=== PATIENT | female | born 1985 | race Caucasian/White ===

== ENCOUNTER → 2021-01-07 08:15 | Outpatient (CLI) | payer OTHER, SELFPAY ==
--- NOTE | ~2021-01-07 | MMUS_ITS ---
EXAMINATION: MM diagnostic john BI w abram, US breast BI complete HISTORY: Bilateral breast lumps TECHNIQUE: Full field ML, MLO and craniocaudal 3-D tomosynthesis images of both breasts and spot Abram synthesis images of the right breast were performed and synthetic 2-D images were generated. CAD anal ysis was submitted and interpreted. High resolution complete bilateral breast ultrasound was performe d. COMPARISON: None BREAST PARENCHYMAL COMPOSITION: The breasts are extremely dense, which lowers the sensitivity of mamm ography. FINDINGS: MAMMOGRAPHIC FINDINGS: No detected mass. No architectural distortion. A few benign calcifications are noted. No malignant ca lcification is evident. No skin thickening or retraction. ULTRASOUND: Right breast: No suspicious solid lesion or shadowing. 10:00 4 cm from nipple: 2.6 x 7.8 x 8.9 mm simple cyst 12:00 3 cm from nipple: 2.2 x 6 x 5 mm simple cyst Left breast: No suspicious solid lesion or shadowing, cyst or other significant finding IMPRESSION: 1. No mammographic evidence of malignancy 2. Routine mammographic screening is recommended, with supplemental ultrasound as appropriate given t he extremely dense fibroglandular stroma BI-RADS Category 2: Benign finding(s). Reviewed, dictated and finalized at location A. IMPRESSION: 1. No mammographic evidence of malignancy 2. Routine mammographic screening is recommended, with supplemental ultrasound as appropriate given the extremely dense fibroglandular stroma BI-RADS Category 2: Benign finding(s).
== END ==
PROVIDERS: PCP Family Medicine; Visit Provider Family Medicine
DX: N60.01 Solitary cyst of right breast (principal)
CPT/HCPCS: 76641; 77062; 77066; G0279

== ENCOUNTER → 2022-06-22 07:50 | Outpatient (CLI) | payer OTHER, SELFPAY ==
--- NOTE | ~2022-06-22 | US_ITS ---
EXAMINATION: US abdomen limited DATE: 06/22/2022 08:29 INDICATION: Right upper quadrant pain TECHNIQUE: Multiple grayscale and Doppler ultrasound images of the abdomen were obtained. COMPARISON: None available FINDINGS: The head and body of the pancreas are normal. The pancreatic tail is obscured by bowel gas. The liver is normal with normal echogenicity and echotexture. No surface nodularity. Normal hepatope anderson flow in the main portal vein. The gallbladder is normal with no abnormal wall thickening, pericho lecystic fluid or stones. The normal common bile duct measures 3 mm. There was no sonographic Chan sign. IMPRESSION: 1. Normal sonographic study of the gallbladder. Reviewed, dictated and finalized at location A.
== END ==
PROVIDERS: PCP Family Medicine; Visit Provider Family Medicine
DX: R10.11 Right upper quadrant pain (principal)
CPT/HCPCS: 76705

== ENCOUNTER 2022-08-24 16:14 | Outpatient (CLI) | payer OTHER, SELFPAY | END 2022-08-24 16:15 | disposition home or self-care (01) | LOC: ANHLAB 16:18 | PROVIDERS: PCP Family Medicine; Visit Provider Obstetrics & Gynecology | DX: E34.9 Endocrine disorder, unspecified (principal) | CPT/HCPCS: 36415; 84702 ==

== ENCOUNTER 2022-08-25 15:14 | Outpatient (CLI) | payer OTHER, SELFPAY ==
--- NOTE | ~2022-08-25 | US_ITS ---
EXAMINATION: US OB <=14 wk fetus w TV DATE: 08/25/2022 15:59 INDICATION: Abnormal hCG level during first trimester TECHNIQUE: Real-time pelvic ultrasound utilizing both a transvaginal and transabdominal probe was pe rformed. The interpreting radiologist was not present for the study. COMPARISON: None. FINDINGS: The uterus measures 9.3 x 5.7 x 6.7 cm. There is an intrauterine gestational sac. A yolk sac is iden tified but no definitive pole. The mean sac diameter measures 6 mm, which correlates with an es timated gestational age of 5 weeks and 2 days. The right ovary measures 2.4 x 1.0 x 2.2 cm. The left ovary measures 2.8 x 2.2 x 2.1 cm. Duraflow amanda ntified in both ovaries on color Doppler. There is no free fluid in the pelvis. IMPRESSION: 1. Intrauterine gestational sac containing a yolk sac but no discernible pole likely due to ear ly stage of . 2. Gestational age by ultrasound based upon mean sac diameter of 5 weeks 2 day(s) +/- 3 day(s) with ultrasound estimated date of delivery (AMXIMUS) of 04/25/2023. Reviewed, dictated and finalized at location A. 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 Intrauterine gestational sac containing a yolk sac but no discernible pole likely due to early stage of . 2. Gestational age by ultrasound based upon mean sac diameter of 5 weeks 2 day (s) +/- 3 day(s) with ultrasound estimated date of delivery (MAXIMUS) of 04/25/2023.
== END 2022-08-25 15:15 | disposition home or self-care (01) ==
LOC: ANHIMG 15:20
PROVIDERS: PCP Family Medicine; Visit Provider Obstetrics & Gynecology
DX: O26.899 Other specified pregnancy related conditions, unspecified trimester (principal); R10.31 Right lower quadrant pain
CPT/HCPCS: 76801; 76817

== ENCOUNTER 2022-09-09 09:45 | Outpatient (CLI) | payer OTHER, SELFPAY ==
--- NOTE | ~2022-09-09 | US_ITS ---
Pelvic ultrasound. Clinical History: First trimester , endocrine disorder Technique: Realtime transabdominal and transvaginal scanning of the pelvis was performed. Color flow Doppler and Doppler spectral analysis were performed. Findings: The uterus is anteverted, and contains an intrauterine gestation. [place]-rump length of 6 mm corresponds to an estimated gestational age of 6 weeks 3 days. No cardiac activity identified. The right ovary measures 1.5 x 3.0 x 1.9 cm. No significant right ovarian or adnexal mass is seen. The left ovary measures 2.7 x 1.5 x 2.7 cm. No significant left ovarian or adnexal mass is seen. There is no evidence of free fluid in the cul de sac. Impression: 6 weeks 3 day old intrauterine gestation without cardiac activity. This is suspicious for demis e/missed . Consider serial beta hCG follow-up, and repeat ultrasound as warranted. Reviewed, dictated and finalized at [facility]. 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 This is susp icious for demise/missed . Consider serial beta hCG follow-up, an d repeat ultrasound as warranted.
== END 2022-09-09 09:46 | disposition home or self-care (01) ==
PROVIDERS: PCP Family Medicine; Visit Provider Obstetrics & Gynecology
DX: O99.891 Other specified diseases and conditions complicating pregnancy (principal); E34.9 Endocrine disorder, unspecified; O28.4 Abnormal radiological finding on antenatal screening of mother; Z3A.00 Weeks of gestation of pregnancy not specified
CPT/HCPCS: 36415; 76801; 76817; 84702

== ENCOUNTER 2022-09-13 14:30 | Outpatient (CLI) | payer OTHER, SELFPAY | END 2022-09-13 14:31 | disposition home or self-care (01) | LOC: ANHLAB 14:32 | PROVIDERS: PCP Family Medicine; Visit Provider Obstetrics & Gynecology | DX: O36.80X0 Pregnancy with inconclusive fetal viability, not applicable or unspecified (principal) | CPT/HCPCS: 36415; 84702 ==

== ENCOUNTER 2022-09-16 15:06 | Outpatient (CLI) | payer OTHER, SELFPAY ==
--- NOTE | ~2022-09-16 | US_ITS ---
EXAMINATION: US OB <=14 wk fetus w TV DATE: 09/16/2022 15:55 INDICATION: with inconclusive viability TECHNIQUE: Real-time transabdominal and transvaginal obstetric ultrasound. FINDINGS: Comparison to 09/09/2022 The uterus measures 8.8 x 5.7 x 6.7 cm. There is an intrauterine gestational sac containing a p ole with crown-rump length of 0.37 cm corresponding to 6 week 0 day gestation. No heart motions are detected. The crown-rump length measured 0.61 on prior ultrasound dated 09/09/2022 at which time there was no heart motions detected as well. The ovaries are within normal limits. There is fr ee fluid in the pelvis. IMPRESSION: 1. Intrauterine gestational sac containing a pole corresponding to 6 week 0 day gestation. No f etal heart motions. Findings most likely represent demise when compared to prior examination. R ecommend follow-up with serial quantitative beta-hCG levels and ultrasound as clinically indicated. Reviewed, dictated and finalized at location A. 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 Intrauterine gestational sac containing a pole corresponding to 6 week 0 day gestation. No heart motions. Findings most likely represent demise when compared to prior examination. Recommend follow-up with serial krupa titative beta-hCG levels and ultrasound as clinically indicated.
== END 2022-09-16 15:07 | disposition home or self-care (01) ==
PROVIDERS: PCP Family Medicine; Visit Provider Obstetrics & Gynecology
DX: O36.80X0 Pregnancy with inconclusive fetal viability, not applicable or unspecified (principal); Z3A.01 Less than 8 weeks gestation of pregnancy
CPT/HCPCS: 76801; 76817

== ENCOUNTER 2022-09-19 16:47 | Outpatient (CLI) | payer OTHER, SELFPAY | END 2022-09-19 16:48 | disposition home or self-care (01) | LOC: ANHLAB 16:49 | PROVIDERS: PCP Family Medicine; Visit Provider Obstetrics & Gynecology | DX: O03.9 Complete or unspecified spontaneous abortion without complication (principal); Z3A.00 Weeks of gestation of pregnancy not specified | CPT/HCPCS: 36415; 84702; 86850; 86900; 86901 ==

== ENCOUNTER 2022-11-22 11:42 | Outpatient (CLI) | payer OTHER, SELFPAY ==
--- NOTE | ~2022-11-22 | XR_ITS ---
Left wrist Technique: PA and lateral views were obtained. Clinical History: Pain Findings: No acute fracture or dislocation is seen. Osseous alignment is anatomic. Joint spaces are p reserved. Soft tissues are unremarkable. Impression: Unremarkable left wrist radiographs. Reviewed, dictated and finalized at location M. Impression: Unremarkable left wrist radiographs.
--- NOTE | ~2022-11-22 | XR_ITS ---
Left Hand Technique: PA, oblique, and lateral views were obtained. Clinical History: Pain Findings: No acute fracture or dislocation is seen. Osseous alignment is anatomic. Joint spaces are p reserved. Soft tissues are unremarkable. Impression: Unremarkable left hand. Reviewed, dictated and finalized at location M. Impression: Unremarkable left hand.
== END 2022-11-22 11:43 | disposition home or self-care (01) ==
PROVIDERS: PCP Family Medicine; Visit Provider Family Medicine
DX: M25.542 Pain in joints of left hand (principal); M25.539 Pain in unspecified wrist
CPT/HCPCS: 73100; 73130

== ENCOUNTER 2023-03-01 01:41 | Day surgery (SDC) | payer OTHER, SELFPAY ==
[2023-02-24 15:20] VITALS: BMI 20.7
--- NOTE | 2023-02-24 15:26 | PC.NURSE ---
Report to the Outpatient Waiting Room, entrance under the green pavilion located off [facility], at time _0800_ on date _03/01/23_. Planned Procedure Time: _1000__. Time changes happen often and if your time is changed the preop area will call you the afternoon before. - You and your visitor will be asked to self-screen and do not enter if you have any COVID symptoms. - A mask is optional within the hospital at this time. Patients may have clear liquids (water, carbonated beverages, clear teas, apple juice) until 3 hours prior to surgery with a maximum of 20 ounces. - No food from midnight until time of surgery - Infants may have breast milk until 4 hours before surgery, formula 6 hours prior to surgery. - Children will be allowed to drink immediately following surgery. If applicable, please bring a bottle or sippy cup to assist with drinking. Juice, water, soda, and popsicles are readily available. For infants on formula, please bring formula the day of surgery. Pacifiers are allowed. Take the following medications with a SIP of water the morning of surgery: ALBUTEROL IF NEEDED DO NOT STOP ANY OF YOUR OTHER PRESCRIPTION MEDICATIONS PRIOR TO SURGERY ?EXCEPT THE FOLLOWING Medications to discontinue per physician MULTIVITAMIN Date to take last dose 02/26/23 Please no make-up, nail belarusian, hairspray, perfume, deodorant, or body powder the day of surgery. No jewelry (including any body piercings) or valuables the day of surgery, leave them at home. Please take a shower or bath the night before, or the morning of, surgery with an antibacterial soap. Wear comfortable, loose fitting clothing. Children are encouraged to wear pajamas. - Jewelry must be removed prior to entering the operating room. Rings and piercings that are not removed may be cut off. - The hospital will not accept responsibility for valuables. - Please leave all valuables, including medications, at home the day of surgery. If you are going home after surgery, a licensed over the road driver must drive you home. - NO public transportation without another adult if you receive anesthesia. - We recommend that an adult stay with you for 24 hours following discharge. - We also recommend that you do not drive, make important decision, drink alcoholic beverages, or take any drugs that were not prescribed by your health care provider for at least 24 hours after your discharge time. For Pediatric surgeries, we recommend two adults accompany the child home. Follow any additional instructions given to you from your surgeon. If you or anyone in your household have experienced Covid symptoms in the past week, please notify your surgeon or the nurse liaison at the phone number below for possible testing. Telephone instructions given to _PATIENT___and asked if any additional questions and then verbalized understanding. Patient advised to call surgeon office or pre surgery nurse liaison [phone] if any additional questions.
[2023-03-01] VITALS (12 sets, daily range): BP systolic 94–128; BP diastolic 58–79; PULSE 47–75; RESP 10–17; TEMP 36.4–36.9; O2SAT 100
--- NOTE | 2023-03-01 07:12 | PM.IMHP ---
H&P: HPI History of Present Illness Date/Time: 03/01/23 07:12 Chief Complaint: Satisfied parity request sterilization Narrative: She is here today for elective laparoscopic bilateral salpingectomy for sterilization. She has satisfied parity. Spouse recently had vasectomy and she wants the sterilization. Declines other options. Review of Systems Review of Systems: All systems reviewed & are unremarkable except as noted in HPI and below Cardiovascular: Cardiovascular: Reports no additional cardiovascular complaints, Denies chest pain and Denies dyspnea Respiratory: Respiratory: Reports no additional respiratory complaints and Denies dyspnea Gastrointestinal: Gastrointestinal: Reports abdominal pain, Denies change in bowel habits, Denies diarrhea, Denies nausea and Denies vomiting Genitourinary: Genitourinary: Reports pelvic pain Musculoskeletal: Musculoskeletal: Reports back pain Integumentary/Breasts: Skin/Breast: Reports system reviewed and no additional complaints, except as docu Neurologic: Reports system reviewed and no additional complaints, except as documented PMFSH Past Medical History Medical History Asthma ALLYSON (generalized anxiety disorder) Migraine Vaginal delivery Surgical History Surgical History History of repair of ACL Family History Family History Mother Depression Hypertension Grandparent Alzheimer's dementia Sibling Patient's brother is in good health Father Family history of heart disease in male family member before age 55 Grandparent Diabetes mellitus Family history of lymphoma Other Acute myocardial infarction Cerebrovascular accident Social History Social History Social History: Smoking status: Never smoker Second hand tobacco smoke exposure: No Alcohol intake: current Drinks per week: 1 Alcohol use details: Socially Substance use: never Substance use type: does not use Lack of Transportation: No Lack of Food: Never True Current Housing: I Have Housing Concerned About Future Housing: No Difficulty Paying Gas/Electric Bills: No Difficulty Paying for Meds: No Currently Unemployed: No Education: Master's Degree or Higher Difficulty w/ Childcare or Family Care: No Living arrangements: with family Occupation/Education: occupation Gender identity (if verbalized by the patient): Female Sexual Orientation (if Verbalized by the Patient): Straight or Heterosexual Meds Home Medications and Allergies Home Medications Medication Instructions Recorded Confirmed Type multivitamin (Daily Multi-Vitamin 1 tablet PO DAILY 08/25/21 03/01/23 History tablet) albuterol sulfate 90 mcg/actuation 2 puff inhalation QID PRN SHORTNES 02/24/23 03/01/23 History aerosol inhaler OF BREATH Allergies Allergy/AdvReac Type Severity Reaction Status Date / Time pseudoephedrine Allergy Mild behavioral Verified 02/09/23 14:36 changes & abnormal dreams Exam Const: Orientation/consciousness: oriented to person and oriented to place HENMT: Head: normal to inspection Eyes: General: appearance normal, both eyes and all related structures Resp: Effort & Inspection: normal respiratory effort Auscultation: clear to auscultation bilaterally Cardio: Rate: regular rate Rhythm: regular rhythm GI: Inspection: normal to inspection GI Palp: No Rebound tenderness present Neuro: General: oriented to person and oriented to place Cognition (Neuro): normal cognition Extrem: General: normal to inspection Psych: Appearance: grossly normal and well kempt Assessment and Plan Assessment and plan (1) Encounter for sterilization: Code(s): Z30.2 - Encounter for sterilization
[2023-03-01] MEDS: LACTATED RINGERS 1,000 ML 30 ML IV CONT ×2 (08:55→11:36)
[2023-03-01] MEDS: ACETAMINOPHEN 500 MG TABLET 1000 MG PO (08:55)
[2023-03-01] MEDS: KETOROLAC 15 MG/ML VIAL (*BKC) IV PUSH (08:55)
--- NOTE | 2023-03-01 10:08 | WPDANESEPPF ---
Anes - Initial Pre Proc Eval Procedure: Operation Date: 03/01/23 10:00 Proposed Procedures p Laparoscopic Bilateral Salpingectomy - Davis Lawson MD Date/Time: 03/01/23 10:08 Surgeon: Davis Lawson MD Pre Op Diagnosis: Desires Sterilization Patient Data Age: 37 Gender: F Height: 1.7 m Weight: 59.7 kg Last Vital Signs Temp 36.4 C 03/01/23 08:34 Pulse 75 03/01/23 08:34 Resp 16 03/01/23 08:34 BP 124/77 03/01/23 08:34 Pulse Ox 100 03/01/23 08:34 O2 Del Method Room Air 03/01/23 08:34 Allergies Allergy/AdvReac Type Severity Reaction Status Date / Time pseudoephedrine Allergy Mild behavioral Verified 02/09/23 14:36 changes & abnormal dreams Home Medications Medication Instructions Recorded Confirmed Type multivitamin (Daily Multi-Vitamin 1 tablet PO DAILY 08/25/21 03/01/23 History tablet) albuterol sulfate 90 mcg/actuation 2 puff inhalation QID PRN SHORTNES 02/24/23 03/01/23 History aerosol inhaler OF BREATH Patient hx anesthesia problems: none Family hx anesthesia problems: none Results Review: All pre-operative results and documents have been reviewed as part of the pre-operative evaluation. [facility] Past Medical History Medical History Asthma ALLYSON (generalized anxiety disorder) Migraine Vaginal delivery Surgical History Surgical History History of repair of ACL Family History Family History Mother Depression Hypertension Grandparent Alzheimer's dementia Sibling Patient's brother is in good health Father Family history of heart disease in male family member before age 55 Grandparent Diabetes mellitus Family history of lymphoma Other Acute myocardial infarction Cerebrovascular accident Social History Social History Social History: Smoking status: Never smoker Second hand tobacco smoke exposure: No Alcohol intake: current Drinks per week: 1 Alcohol use details: Socially Substance use: never Substance use type: does not use Lack of Transportation: No Lack of Food: Never True Current Housing: I Have Housing Concerned About Future Housing: No Difficulty Paying Gas/Electric Bills: No Difficulty Paying for Meds: No Currently Unemployed: No Education: Master's Degree or Higher Difficulty w/ Childcare or Family Care: No Living arrangements: with family Occupation/Education: occupation Gender identity (if verbalized by the patient): Female Sexual Orientation (if Verbalized by the Patient): Straight or Heterosexual Anes - Eval Final PreProcedure Day of Procedure 03/01/23 10:08 Patient weight: normal Heart: regular rate and rhythm Lungs: clear to auscultation Airway: Mallampati scale class II Neurological: alert and oriented Last oral intake: >/= 8 hours ASA classification: II Emergent: no Anesthetic plan: proceed Anesthesia type and monitoring: general ETT and standard monitoring Results Review: All pre-operative results and documents have been reviewed as part of the pre-operative evaluation. Informed Consent: The patient's anesthetic plan and its attendant risks and benefits were discussed with the patient/family/POA. Questions were solicited and answers provided to the satisfaction of the patient/family/POA.
--- NOTE | 2023-03-01 10:42 | WPDHPUPDATE1 ---
History and Physical Update Update Date/Time: 03/01/23 10:42 History and Physical has been reviewed, including an updated exam of the patient. There are NO changes in the patient's condition. Risks, benefits, and alternatives have been discussed and questions answered. Patient agrees to proceed with procedure.
[2023-03-01] MEDS: BUPivacaine HCL 0.5% 10 ML AMP 20 ML INFILTRATE (11:13)
--- NOTE | 2023-03-01 12:36 | PM.OP ---
Procedure Note - Brief Procedure Note - Brief Date of procedure: 03/01/23 Desires Sterilization Post-op diagnosis: Same Procedure performed: Laparoscopic bilateral salpingectomy Surgeon: Davis Lawson MD Anesthesia: GETA Findings: Normal uterus, fallopian tubes, and ovaries bilateral Estimated blood loss (mL): 5 Drains: No Packing: No Pathology: Yes (right and left fallopian tube) Complications: No immediate complications Condition: Stable
--- NOTE | 2023-03-17 09:25 | P.OP_ITS ---
Procedure Note - Detailed Date of Procedure 03/17/23 Pre-op Diagnosis Desires Sterilization Post-op Diagnosis Same Procedure Performed Laparoscopic Bilateral salpingectomy Surgeon Davis Lawson MD Anesthesia General Indications Undesired fertility, desires permanent sterilization Findings Normal appearing uterus and fallopian tubes and ovaries bilaterally. Description of Procedure After informed consent was obtained patient was taken to the operating room and general endotracheal anesthesia was administered. She was placed in low lithotomy need prep prepped sterile fashion. Attention was turned to the vagina speculum inserted single-tooth tenaculum placed on anterior lip of the cervix. Ethridge uterine manipulator placed into the cervical canal. The speculum was removed. Attention was then turned to the abdomen. With sterile gloves a vertical incision was made at the umbilicus and a Veress needle was inserted into the abdomen confirmation into the abdomen obtained with free flow of fluid and normal peritoneal pressures. A pneumoperitoneum of 15 mm per mercury was obtained. The 5 mm port was inserted under laparoscopic visualization. Patient was placed in Trendelenburg position. Attention was turned to the left side of the abdomen and a 5 mm port was inserted under laparoscopic visualization. The pelvic organs were visualized. Using the LigaSure the right fallopian tube was excised to near the entrance to the uterus. This was removed through the port. Attention was then turned to the left fallopian tube which was grabbed at the distal end and cauterized from the mesial salpinx to within a cm of the entrance to the entrance to the uterus. The fallopian tube was removed through the 5 mm port. Hemostasis was noted at both sites. Patient was taken out of Trendelenburg position the pneumoperitoneum was released and the skin incisions were closed in a subcuticular fashion with 4 O Vicryl. Estimated Blood Loss 5 Drains No Packing No Pathology Yes (Segments of right and left fallopian tubes) Complications No immediate complications Condition Stable Disposition Same day
== END 2023-03-01 13:48 | disposition home or self-care (01) ==
PROVIDERS: PCP Family Medicine; Visit Provider Obstetrics & Gynecology
PROC: (CPT 49320; principal; 2023-03-01 10:00)
DX: Z30.2 Encounter for sterilization (principal); J45.909 Unspecified asthma, uncomplicated; Z79.51 Long term (current) use of inhaled steroids
CPT/HCPCS: 58661; 88302; A9270; J0330; J1100; J1885; J2250; J2405; J2704; J2710; J3010; J7030; J7120

== ENCOUNTER 2023-07-31 15:43 | Emergency (ER) | payer OTHER, SELFPAY ==
[2023-07-31 16:03] VITALS: BP 121/87; PULSE 89; RESP 18; TEMP 36.6; O2SAT 100
--- NOTE | 2023-07-31 16:03 | ED.URI ---
HPI - URI/Sore Throat General Chief Complaint: Upper Respiratory Infection Stated Complaint: cough Source: patient Mode of arrival: ambulatory Limitations: no limitations History of Present Illness HPI Narrative: 38-year-old female presented for complaint of cough for over 1 week. States cough is nonproductive, worse in the morning. Taking cough med for symptoms. Endorses hx sports induced asthma and used albuterol inhaler 2 days ago after completing a 5K run, reporting chest felt heavy. Denies cp, palpitations, sob, wheezing, n/v/d/f/c. Related Data Home Medications Medication Instructions Recorded Confirmed albuterol sulfate 90 mcg/actuation 1 inh inhalation QID PRN Shortness 07/31/23 07/31/23 aerosol inhaler Of Breath Allergies Allergy/AdvReac Type Severity Reaction Status Date / Time pseudoephedrine Allergy Mild behavioral Verified 03/28/23 15:37 changes & abnormal dreams Review of Systems Review of Systems: CONSTITUTIONAL: Denies body aches, fever, chills, or sweats. EYES: Denies visual changes, redness, or discharge. ENT: Denies rhinorrhea, congestion, sore throat, or otalgia. CARDIOVASCULAR: Denies chest pain, palpitations, or edema. RESPIRATORY: Reports cough, denies sob, wheezing. GASTROINTESTINAL: Denies abdominal pain, nausea, vomiting, or diarrhea. GENITOURINARY: Denies dysuria or hematuria. SKIN: Denies rash, itching, or wounds. MUSCULOSKELETAL: Denies back pain, joint pain, or myalgia. NEUROLOGIC: Denies headache, numbness, tingling, or weakness. All systems reviewed & are unremarkable except as noted in HPI and below PMFSH Past Medical History Medical History Asthma ALLYSON (generalized anxiety disorder) Migraine Vaginal delivery Surgical History Surgical History History of repair of ACL Hx of bilateral salpingectomy Family History Family History Mother Depression Hypertension Grandparent Alzheimer's dementia Sibling Patient's brother is in good health Father Family history of heart disease in male family member before age 55 Grandparent Diabetes mellitus Family history of lymphoma Other Acute myocardial infarction Cerebrovascular accident Social History Social History Social History: Smoking status: Never smoker Second hand tobacco smoke exposure: No Alcohol intake: current Drinks per week: 1 Alcohol use details: Socially Substance use: never Substance use type: does not use Lack of Transportation: No Lack of Food: Never True Current Housing: I Have Housing Concerned About Future Housing: No Difficulty Paying Gas/Electric Bills: No Difficulty Paying for Meds: No Currently Unemployed: No Education: Master's Degree or Higher Difficulty w/ Childcare or Family Care: No Living arrangements: with family Occupation/Education: occupation Gender identity (if verbalized by the patient): Female Sexual Orientation (if Verbalized by the Patient): Straight or Heterosexual Comments At time of signature, I have reviewed and agree with nursing past medical, surgical, social and family history unless otherwise noted. Please see nursing chart for further information. There is no relevant family history pertinent to the presenting complaint Exam Narrative: GENERAL: Well-appearing, in no acute distress. EYES: EOMI. No redness or drainage. Conjunctivae normal. ENT: Mucous membranes pink and moist. No rhinorrhea. TMs normal bilaterally. Throat normal. Uvula midline. NECK: Normal AROM. Supple. CHEST: No respiratory distress. Lungs clear to all del cid. 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 HEART: Regular rate and rhythm. No murmur appreciated. ABDOMEN: Soft, nontender, nondistended, normal active
[2023-07-31 16:04] VITALS: BP 121/87; PULSE 89; RESP 18; TEMP 36.6; O2SAT 100
== END 2023-07-31 16:19 | disposition home or self-care (01) ==
PROVIDERS: Emergency Provider Nurse Practitioner Family; PCP Family Medicine
DX: J40 Bronchitis, not specified as acute or chronic (principal)
CPT/HCPCS: 99213; G0463

== ENCOUNTER 2024-02-26 15:39 | Outpatient (CLI) | payer OTHER, SELFPAY ==
--- NOTE | ~2024-02-26 | MM_ITS ---
EXAMINATION: MM screening john BI w abram HISTORY: Screening TECHNIQUE: Craniocaudal and mediolateral oblique 3-D tomosynthesis images were obtained and synthetic 2-D images were generated. CAD analysis was submitted and interpreted. COMPARISON: 01/07/2021 BREAST PARENCHYMAL COMPOSITION: Dense: The breasts are extremely dense, which lowers the sensitivity of mammography. FINDINGS: There is no evidence of suspicious mass, calcification, or architectural distortion to sugg est malignancy in either breast. There has been no suspicious interval change. IMPRESSION: 1. No mammographic evidence of malignancy. 2. Recommend routine screening mammography in one year. BI-RADS Category 1: Negative Reviewed, dictated and finalized at location B.
== END 2024-02-26 15:40 | disposition home or self-care (01) ==
LOC: ANHIMG 15:43
PROVIDERS: PCP Family Medicine; Visit Provider Nurse Practitioner Obstetrics & Gynecology
DX: Z12.31 Encounter for screening mammogram for malignant neoplasm of breast (principal)
CPT/HCPCS: 77063; 77067

== ENCOUNTER 2024-03-08 04:05 | Emergency (ER) | payer OTHER, SELFPAY ==
--- NOTE | ~2024-03-08 | CT_ITS ---
Noncontrast CT scan of the cervical spine Technique: Multiple contiguous axial [address] images of the cervical spine were obtained and rec onstructed in 2D sagittal and coronal planes on the acquisition scanner. Dose reduction technique was used on this scan by utilizing automated exposure control, adjustment of the mA and/or kV according to patient size. The dose-length product (DLP) was 222.99 mGy-cm. Clinical History: Pain Findings: No fractures or dislocations. There is prominent left facet arthropathy at C4-C5, with min imal left neural foraminal narrowing at this level. No prevertebral soft tissue swelling. Impression: No fracture or subluxation of the cervical spine. Left facet arthropathy at C4-C5, with minimal left neural foraminal narrowing at this level. Reviewed, dictated and finalized at [facility]. Impression: No fracture or subluxation of the cervical spine. Left facet arthropathy at C4-C5, with minimal left neural foraminal narrowing a t this level.
--- NOTE | ~2024-03-08 | CT_ITS ---
Non-contrast Head CT History: Head injury, syncopal episodes Technique: Axial non-contrast imaging of the brain was performed. Dose reduction technique was used on this scan by utilizing automated exposure control and iterative reconstruction technique. The dose -length product (DLP) was 529.67 mGy-cm. Findings: There is no evidence of intracranial hemorrhage, mass lesion, or acute infarct. Brain par enchyma appears normal. The ventricles and subarachnoid spaces are normal in size. The calvarium ap pears normal. The visualized paranasal sinuses and mastoid air cells are clear. Impression: No significant abnormality seen. Reviewed, dictated and finalized at [facility]. Impression: No significant abnormality seen.
[2024-03-08 04:10] VITALS: BP 109/64; PULSE 44; RESP 19; TEMP 36.4; O2SAT 100
--- NOTE | 2024-03-08 04:54 | ECG_ITS ---
Test Date: 2024-03-08 05:04:06 Measurements Intervals Central Rate: 60 P: 84 TX: 229 QRS: 100 QRSD: 88 T: 13 QT: 427 QTc: 427 Interpretive Statements SINUS RHYTHM WITH MARKED SINUS ARRHYTHMIA WITH FIRST DEGREE AV BLOCK POSSIBLE LEFT ATRIAL ENLARGEMENT [-0.1mV P WAVE IN V1/V2] BORDERLINE RIGHT AXIS DEVIATION [QRS AXIS > 90] BORDERLINE ECG No previous ECG available for comparison Electronically Signed On 03-08-2024 07:30:43 CDT by James Ortiz M.D.
[2024-03-08 05:05] LABS: Basophils Absolute Auto 0.1 K/mm3 (0.0-0.1); Basophils Percent Auto 0.8 % (0.2-1.2); Eosinophils Absolute Auto 0.1 K/mm3 (0-0.3); Eosinophils Percent Auto 1.9 % (0-4.4); Hematocrit 42.5 % (37.0-47.0); Hemoglobin 14.1 g/dL (12.0-15.0); Immature Granulocyte Absolute 0.01 K/mm3 (0.00-0.031); Immature Granulocyte Percent A 0.2 % (0-0.5); Lymphocytes Absolute Auto 3.02 K/mm3 (0.9-3.2); Lymphocytes Percent Auto 51.3 % (18.3-44.2); Mean Corpuscular HGB Conc 33.2 g/dl (32-36); Mean Corpuscular Hemoglobin 30.4 pg (26-34); Mean Corpuscular Volume 91.6 fl (80-100); Mean Platelet Volume 9.5 fl (7.4-10.4); Monocytes Absolute Auto 0.5 K/mm3 (0.1-0.6); Monocytes Percent Auto 7.8 % (2.6-8.5); Neutrophils Absolute Auto 2.2 K/mm3 (1.3-6.7); Platelet Count Result 192 k/mm3 (150-375); Red Blood Count 4.64 M/mm3 (4.2-5.4); Red Cell Distribution Width 12.8 % (11.5-14.5); White Blood Count 5.9 K/mm3 (4.5-10.0)
[2024-03-08 05:14] LABS: Alanine Aminotransferase 19 U/L (6-35); Albumin Level 4.3 g/dL (3.5-5.1); Alkaline Phosphatase 48 U/L (38-126); Anion Gap 6 mmol/L (4-12); Aspartate Amino Transferase 31 U/L (14-36); Bilirubin,Total 0.7 mg/dL (0.2-1.3); Blood Urea Nitrogen 19 mg/dL (7-17); Calcium 9.3 mg/dL (8.4-10.2); Carbon Dioxide 26 mmol/L (22-30); Chloride 106 mmol/L (98-107); Estimated Glomerular Filt Rate > 60; Glucose 134 mg/dL (65-110); Magnesium 2.1 mg/dL (1.6-2.3); Potassium 3.5 mmol/L (3.4-5.0); Sodium 138 mmol/L (137-145)
[2024-03-08 05:33] VITALS: PULSE 60; RESP 12; O2SAT 100
--- NOTE | 2024-03-08 05:52 | ED.GENADULT ---
HPI - General Adult General Chief complaint: Syncope Stated complaint: syncope Time Seen by Provider: 03/08/24 04:33 History of Present Illness HPI narrative: patient is a 38-year-old female who presents emergency department with chief complaint of syncope. Patient reports that her daughter fell and injured herself and the patient noticed that there was blood patient felt that she was going to pass out then got up after passing out and passed out again. Patient reports that she has got some discomfort in her neck reports that otherwise she does not hurt anywhere else. Related Data Home Medications Medication Instructions Recorded Confirmed albuterol sulfate 90 mcg/actuation 1 inh inhalation QID PRN Shortness 07/31/23 02/22/24 aerosol inhaler Of Breath Allergies Allergy/AdvReac Type Severity Reaction Status Date / Time pseudoephedrine Allergy Mild behavioral Verified 03/08/24 04:18 changes & abnormal dreams Review of Systems Review of Systems: A 10 system review of systems was completed on the patient and is negative except for what is stated in the HPI. Nursing and ancillary documentation was reviewed. [facility] Past Medical History Medical History Asthma ALLYSON (generalized anxiety disorder) Migraine Vaginal delivery Surgical History Surgical History History of repair of ACL Hx of bilateral salpingectomy Family History Family History Mother Depression Hypertension Grandparent Alzheimer's dementia Sibling Patient's brother is in good health Father Family history of heart disease in male family member before age 55 Grandparent Diabetes mellitus Family history of lymphoma Other Acute myocardial infarction Cerebrovascular accident Social History Social History Social History: Smoking status: Never smoker Second hand tobacco smoke exposure: No Alcohol intake: current Alcohol use details: Socially Substance use: never Substance use type: does not use Lack of Transportation: No Lack of Food: Never True Current Housing: I Have Housing Concerned About Future Housing: No Difficulty Paying Gas/Electric Bills: No Difficulty Paying for Meds: No Currently Unemployed: No Education: Master's Degree or Higher Difficulty w/ Childcare or Family Care: No Living arrangements: with family Occupation/Education: occupation 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 HEAD: Normocephalic, atraumatic. EYES: PERRLA and EOMI. ENT: Nares clear, no rhinorrhea or epistaxis. Mucous membranes moist. NECK: Supple. Minimal tenderness in the lateral paraspinous muscles CHEST: Clear to auscultation. No respiratory distress. HEART: Regular rate and rhythm. No murmur heard. Normal peripheral pulses. ABDOMEN: Soft, nontender, nondistended, normal active bowel sounds. EXTREMITIES: Normal range of motion. No edema. SKIN: Warm, dry, no rash. NEURO: No focal deficits. Alert and oriented x3. PSYCH: Normal mood and affect. Course Vital Signs Vital signs: Vital Signs Temperature 36.4 C L 03/08/24 04:10 Pulse Rate 44 L 03/08/24 04:10 Respiratory Rate 19 03/08/24 04:10 Blood Pressure 109/64 03/08/24 04:10 Pulse Oximetry 100 03/08/24 04:10 Oxygen Delivery Room Air 03/08/24 04:10 Temperature 36.4 C L 03/08/24 04:10 Pulse Rate 60 03/08/24 05:33 Respiratory Rate 12 03/08/24 05:33 Blood Pressure 109/64 03/08/24 04:10 Pulse Oximetry 10
== END 2024-03-08 06:04 | disposition home or self-care (01) ==
PROVIDERS: Emergency Provider Emergency Medicine
DX: R55 Syncope and collapse (principal); S16.1XXA Strain of muscle, fascia and tendon at neck level, initial encounter; W19.XXXA Unspecified fall, initial encounter
CPT/HCPCS: 36415; 70450; 72125; 80053; 83735; 85025; 93005; 99284

== ENCOUNTER 2024-04-03 08:47 | Outpatient (CLI) | payer OTHER, SELFPAY ==
--- NOTE | ~2024-04-03 | MR_ITS ---
MR cervical spine wo con Ordering provider: Latia Isbell, History: 38 years Female with . Cervical radiculopathy . Comparison: None. Technique: MRI cervical spine without contrast. FINDINGS: CERVICAL SPINAL CORD/CRANIAL CERVICAL JUNCTION: Normal in signal and caliber. CERVICAL VERTEBRAL BODIES: Normal height and alignment. Normal marrow signal. DISK SPACES: Normal. C2-C3: No stenosis. C3-C4: No stenosis. C4-C5: No stenosis. C5-C6: No stenosis. C6-C7: No stenosis. Central Disc protrusion with no significant narrowing of the foramina with root c ompression. C7-T1: No stenosis. VISUALIZED PARASPINOUS SOFT TISSUES: Normal. IMPRESSION: 1. No acute osseous abnormality. 2. Disc protrusion at the level of C6-C7 with no spinal canal stenosis, intervertebral foramina narr owing or nerve root compression. Reviewed, dictated and finalized at location A. IMPRESSION: 1. No acute osseous abnormality. 2. Disc protrusion at the level of C6-C7 with no spinal canal stenosis, interv ertebral foramina narrowing or nerve root compression.
== END 2024-04-03 08:48 ==
LOC: MICIMG 08:48
PROVIDERS: PCP Family Medicine Sports Medicine; Visit Provider Family Medicine Sports Medicine
DX: M54.12 Radiculopathy, cervical region (principal); M25.511 Pain in right shoulder; M79.18 Myalgia, other site; M25.512 Pain in left shoulder; M50.323 Other cervical disc degeneration at C6-C7 level
CPT/HCPCS: 72141

== ENCOUNTER 2024-04-18 15:27 | Emergency (ER) | payer OTHER, SELFPAY ==
--- NOTE | 2024-04-18 15:36 | ED.URI ---
HPI - URI/Sore Throat General Chief Complaint: Upper Respiratory Infection Stated Complaint: sore throat Time Seen by Provider: 04/18/24 15:50 Source: patient, RN notes reviewed and old records reviewed Mode of arrival: ambulatory Limitations: no limitations History of Present Illness HPI Narrative: 38-year-old female presents to the [facility] with complaints of 9 day history of a sore throat. States that it also started with some sinus congestion, thought it was allergies or sinus issue. Patient states that she treated it all of her other symptoms improved but the sore throat continues, states that she developed some swollen glands over the last day or so. Did take fldk-obg-ulqhiss cold medication Onset (ago): day(s) (9) Related Data Home Medications Medication Instructions Recorded Confirmed albuterol sulfate 90 mcg/actuation 1 inh inhalation QID PRN Shortness 07/31/23 02/22/24 aerosol inhaler Of Breath Allergies Allergy/AdvReac Type Severity Reaction Status Date / Time pseudoephedrine AdvReac Mild behavioral Verified 04/18/24 15:52 changes & abnormal dreams Review of Systems Review of Systems: All systems reviewed & are unremarkable except as noted in HPI and below Constitutional: Constitutional: Reports no additional constitutional complaints Eyes: Eyes: Reports no additional eye complaints ENT: Reports as per HPI Cardiovascular: Cardiovascular: Reports no additional cardiovascular complaints, Denies chest pain and Denies dyspnea Respiratory: Respiratory: Reports no additional respiratory complaints, Denies chest congestion, Denies cough and Denies dyspnea Gastrointestinal: Gastrointestinal: Reports no additional gastrointestinal complaints, Denies abdominal pain, Denies nausea and Denies vomiting Musculoskeletal: Musculoskeletal: Reports no additional musculoskeletal complaints Integumentary/Breasts: Skin/Breast: Reports system reviewed and no additional complaints, except as docu Neurologic: Reports system reviewed and no additional complaints, except as documented Psychiatric: Psychiatric: Reports no additional psychiatric complaints Allergic/Immunologic: Allergic/Immunologic: Reports no additional allergic/immunologic complaints PMFSH Past Medical History Medical History Asthma ALLYSON (generalized anxiety disorder) Migraine Vaginal delivery Surgical History Surgical History History of repair of ACL Hx of bilateral salpingectomy Family History Family History Mother Depression Hypertension Grandparent Alzheimer's dementia Sibling Patient's brother is in good health Father Family history of heart disease in male family member before age 55 Grandparent Diabetes mellitus Family history of lymphoma Other Acute myocardial infarction Cerebrovascular accident Social History Social History Social History: Smoking status: Never smoker Second hand tobacco smoke exposure: No Alcohol intake: current Alcohol use details: Socially Substance use: never Substance use type: does not use Lack of Transportation: No Lack of Food: Never True Current Housing: I Have Housing Concerned About Future Housing: No Difficulty Paying Gas/Electric Bills: No Difficulty Paying for Meds: No Currently Unemployed: No Education: Master's Degree or Higher Difficulty w/ Childcare or Family Care: No Living arrangements: with family Occupation/Education: occupation 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
[2024-04-18 15:44] VITALS: BP 110/70; PULSE 73; RESP 18; TEMP 37.3; O2SAT 100
== END 2024-04-18 16:21 | disposition home or self-care (01) ==
PROVIDERS: Emergency Provider Nurse Practitioner; PCP Family Medicine Sports Medicine
DX: J02.0 Streptococcal pharyngitis (principal); J45.909 Unspecified asthma, uncomplicated
CPT/HCPCS: 87880; 99213; G0463

== ENCOUNTER 2025-06-13 11:23 | Outpatient (CLI) | payer OTHER, SELFPAY ==
--- NOTE | ~2025-06-13 | MM_ITS ---
EXAMINATION: MM screening john BI w abram HISTORY: Screening TECHNIQUE: Craniocaudal and mediolateral oblique 3-D tomosynthesis images were obtained and synthetic 2-D images were generated. CAD analysis was submitted and interpreted. COMPARISON: Comparison to multiple prior studies sequentially, with oldest reviewed study dated 01/07/2021. BREAST PARENCHYMAL COMPOSITION: Dense: The breasts are extremely dense, which lowers the sensitivity of mammography. FINDINGS: There is no evidence of suspicious mass, calcification, or architectural distortion to suggest malignancy in either breast. There has been no suspicious interval change. IMPRESSION: 1. No mammographic evidence of malignancy. 2. Recommend routine screening mammography in one year. BI-RADS Category 1: Negative Reviewed, dictated and finalized at location B.
--- OUTSIDE RECORDS SUMMARY | 2025-06-13 11:26 | XMS_ITS | Clinical Summary ---
Author Organization [facility] Address [address] [place] [address] Care Team Providers Care Oyster Preparer Name Role Phone Unavailable Primary Care Provider Unavailabl e Source Comments [facility],non-owned Affiliates and Associated Physician Practices is amultiple site organization consisting of ambulatory clinics and hospital sitesin [place], [place], [place] and [place]. This disclosure is being madepursuant to the Care Everywhere program and may not contain all information available regarding this patient. Last updated 18.[facility] Allergies No known active allergies Medications * Be aware that medications may not be up to date on this document. Alwaysverify current medications with the patient. No known medications Immunizations Immunization Administration Dates Next Due INFLUENZA VACCINE, HIGH-DOSE , QUADR. (FLUZONE HIGH-DOSE QUADRIVALENT; 65Y+), 0.7 ML (HD-IIV4) 06/25/2020 Family History Medical History Relation Name Comments Hypertension Mother Relation Name Status Comments Father Alive Mother Alive Social History Tobacco Use Types Packs/Day Years Used Date Smoking Tobacco: Never Smokeless Tobacco: Never Comments No Sex and Gender Information Value Date Recorded Sex Assigned at Not on file Legal Sex Female 1:14 PM CDT Gender Identity Not on file Sexual Orientation Not on file Last Filed Vital Signs Vital Sign Reading Time Taken Comments Blood Pressure 90/60 03/23/2018 9:50 AM CDT Pulse 69 03/23/2018 9:50 AM CDT Temperature 36.9 C (98.5 F) 03/23/2018 9:50 AM CDT Respiratory Rate 16 03/23/2018 9:50 AM CDT Oxygen Saturation 100% 03/23/2018 9:50 AM CDT Inhaled Oxygen Concentration - - Weight 60.3 kg (133 lb) 03/23/2018 9:50 AM CDT Height 170.2 cm (5' 7) 03/23/2018 9:50 AM CDT Body Mass Index 20.83 03/23/2018 9:50 AM CDT Plan of Treatment Health Maintenance Due Date Last Done Comments LIPID TESTING 1983 MAMMOGRAM 1983 HIV SCREENING 1998 HEPATITIS C SCREENING 05/21/2001 DTAP/TDAP/TD VACCINES (1 - Tdap) 2002 HEPATITIS B VACCINE (1 of 3 - 19+ 3-dose series) 2002 PAP SMEAR 2004 HPV VACCINE (1 - 3-dose SCDM series) 2010 DEPRESSION SCREENING 09/11/2024 COVID-19 VACCINE (1 - 2023-2 5 season) 2025 INFLUENZA VACCINE (#1) 2025 06/25/2020 ZOSTER VACCINE (1 of 2) 2033 HIB VACCINE Aged Out No longer eligi ble based on patient's age to complete this topic MENINGOCOCCAL (Group B) VACC INE SHARED DECISION-MAKING Aged Out No longer eligibl e based on patient's age to complete this topic MENINGOCOCCAL GROUPS A/C/Y/W VACCINE Aged Out No longer eligible b ased on patient's age to complete this topic PNEUMOCOCCAL VACCINE Aged Out No long er eligible based on patient's age to complete this topic Insurance AET
--- OUTSIDE RECORDS SUMMARY | 2025-06-13 11:26 | XMS_ITS | Clinical Summary ---
[facility] Organization [facility] Address [address] [place] [address] Care Team Providers Care Physicist Acoustics Name Role Phone Latia Isbell MD Primary Care Provider Allergies Active Allergy Reactions Criticality Noted Date Comments Pseudoephedrine Hcl Other (See comments) Low 2019 Reaction: Other Medications ibuprofen (ibuprofen) 200 mg tab/cap Take 1 tablet/capsul e (200 mg total) by mouth every 6 (six) hours as needed for pain Active albuterol HFA (PROVENTIL HFA,VENTOLIN HFA,PROAIR HFA) 90 mcg/actuation inhaler Inhale 2 puffs every 6 (six) hours as needed for wheezing Active levocetirizine (XYZAL) 5 mg tablet Take 1 tablet (5 mg total) by mouth every evening Active Active Problems Problem Noted Date Diagnosed Date Vasovagal syncope 04/17/2024 Assessment & Plan (04/17/2024 12:36 PM CDT): Patient had a couple episodes of what sounds like vasovagal syncope. EKG report does not show any major concerning changes. 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 There are couple of borderline changes that were questionable based on the report and the sounds like they were not definitively sure if were there. In absence of more significant symptoms further evaluation can be deferred. If she continues to have episodes of palpitation more concerning symptoms then we will consider obtaining a Holter monitor and possible echocardiogram. She will update me if she has any recurrent symptoms of lightheadedness, dizziness or frequent palpitation Trigger point of shoulder region, left Assessment & Plan (04/17/2024 12:37 PM CDT): We have been dealing with this for several months. MRI was negative for cervical pathology to explain her symptoms. Has been in therapy and trying home exercises. Given struggling despite conservative treatment we did discuss option to trial of trigger point injections with some therapeutic needling to the trigger points. After discussion of risks and benefits as well as alternatives patient wanted to proceed with injections. She is aware that given the location overlying the chest wall these can have slight rare risk for pneumothorax and she will monitor closely for these symptoms if occurs. Trigger point injections done to the levator scapula as well as the rhomboid in office today. Post-injection care was discussed. We will see how she does. Sometimes it takes a series of multiple trigger point injections every few weeks for symptoms to fully resolve. She will update me in a couple weeks on how she is doing Exercise-induced asthma 03/05/2024 Assessment & Plan (04/17/2024 12:35 PM CDT): Chronic. Controlled. Monitor. Continue p.r.n. albuterol Lichen simplex chronicus 07/25/2017 Eczema 08/26/2016 Resolved Problems Problem Noted Date Diagnosed Date Resolved Date Menstrual abnormality 07/06/20172023 Pain in female pelvis 04/19/20172023 Mass of breast 11/03/2014 03/05/2024 Immunizations Immunization Administration Dates Next Due DTP 11/16/1988, 5,1983,10/11,1983 Influenza, Quadrivalent, Basia l Culture-based MDCK, Preservative Free, Antibiotic Free, Intramuscular 07/05/2023,06/16/2022 Influenza, Quadrivalent, Hig h Dose, Preservative Free, Intrr 06/25/2020 Influenza, Quadrivalent, Spl it, Intramuscular 07/22/2019 Influenza, Quadrivalent, Spl it, Preservative Free, Intramuscular 06/30/2021,07/22/2019,07/01/2018 Influenza, Unspecified 06/25/2020 MMR 03/18/1992,08/28/1984 OPV 11/16/1988, 5,1983,10/11,1983 Tdap 07/31/2015 Surgical History Surgery Date Site/Laterality Comments ANTERIOR CRUCIATE LIGAMENT REPAIR 09/11/2001 - 09/10/2002 Right ACL repair, patellar tendon graft and meniscectomy TUBAL LIGATION February 2023 Medical History Medical History Date Comments Pneumonia 1989 and 2002 Acne History of acne - (Added by TW Conv) Exercise-induced asthma Chickenpox Family History Medical History Relation Name Comments Diabetes Maternal Grandmother Lizet Trejo Diabe marisol Mellitus - (Added by TW Conv) Heart disease Maternal Grandmother Lizet Trejo Hear t Disease - (Added by TW Conv) Hypertension Mother Keira Kaba Osteoporosis Mother Keira Kaba Bleeding Disorder Mother's Brother Report ed Family History Of Bleeding Problems - (Added by TW Conv) Arthritis Other 1 Alzheimer's disease Other 2 P great aunts x 3 Heart disease Paternal Grandfather Christian Kaba pacemaker Paternal Grandfather Christian Kaba Alzheimer's disease Paternal Grandmother Relation Name Status Comments Brother Alive Father Alive Maternal Grandfather Maternal Grandmother Lizet Trejo Mother Keira Kaba Alive Mother's Brother Other 1 Other 2 P great aunts x 3 Paternal Grandfather Christian Kaba Alive Paternal Grandmother Social History Tobacco Use Types Packs/Day Years Used Date Smoking Tobacco: Never Smokeless Tobacco: Never Tobacco Cessation:Counseling Given: Not Answered AUDIT-C Answer Date Recorded Q1: How often do you have a drink containing alc ohol? Monthly or less 03/05/2024 Q2: How many drinks containi ng alcohol do you have on a typical day when you are drinking? 1 or 2 03/05/2024 Q3: How often do you have si x or more drinks on one occasion? 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 Gender Identity Female 04/30/2021 5:50 PM CDT Sexual Orientation Not on file Obstetrics History Last Filed Vital Signs Vital Sign Reading Time Taken Comments Blood Pressure 108/69 05/21/2024 3:08 PM CDT Pulse 62 05/21/2024 3:08 PM CDT Temperature 36.8 C (98.3 F) 03/05/2024 9:36 AM CDT Respiratory Rate 20 03/05/2024 9:36 AM CDT Oxygen Saturation 98% 03/05/2024 9:36 AM CDT Inhaled Oxygen Concentration - - Weight 62.7 kg (138 lb 3.2 oz) 05/21/2024 3:08 P M CDT Height 170.2 cm (5' 7) 05/21/2024 3:08 PM CDT Body Mass Index 21.65 05/21/2024 3:08 PM CDT Plan of Treatment Health Maintenance Due Date Last Done Comments Breast Cancer Screening-Mammogram 1983 Cervical Cancer Screening 1983 Hepatitis B Screening 2001 Pneumococcal vaccine <65 (1 of 2 - PCV) 2002 HPV Vaccines (1 - 3-dose SCD M series) 2010 Depression Screening 03/05/2025 03/05/2024 Regular Well Visit/Exam 18-64 03/05/2025 03/05/2024 Covid-19 Vaccine (6 - 2024-2 6 season) 2025 07/05/2023, 06/16/2022, 06/05/2021, Additional history exists Influenza Vaccine (#1) 2025 , 07/05/2023, 06/16/2022, Additional history exists DTaP/Tdap/Td Vaccine (7 - Td or Tdap) 07/31/2025 07/31/2015, 11/16/1988, 11/22/1984, Additional history exists Hepatitis C Screening Completed 03/06/2024 Procedures Procedure Name Priority Date/Time Associated Diagnosis Comments HEPATITIS C ANTIBODY Routine 03/06/2024 7:43 AM CDT Routine physical examination Encounter for hepatitis C screening test for low risk patient from Last 3 Months or Most Recently Relevant to Health Maintenance Results * Hepatitis C antibody Blood (03/06/2024 7:43 AM CDT) Hep C Ab NON-REACTI VE NON-REACT NIRAV [facility] Comment: HCV antibody was non-reactive. There is no laboratory evidence of HCV infection. In most cases, no further action is required. However, if recent HCV exposure is suspected, a test for HCV RNA (test code 85659) is suggested. For additional information please refer to http://education.snapp.me/faq/MEM37b6 (This link is being provided for informational/ educational purposes only.) Blood 03/06/2024 7:43 AM CDT 03/06/2024 7:43 AM CDT Narrative [facility] - 03/08/2024 2:17 AM CDT FASTING:YES FASTING: YES Latia Isbell MD LAB MICROBIOLOGY - GEN ERAL ORDERABLES Final Result [facility] [id number] [place] [address] from Last 3 Months or Most Recently Relevant to Health Maintenance Insurance [facility] Care Teams Physicist Acoustics Relationship Specialty Start Date End Date Latia Isbell MD PCP - General Family Medicine 03/05/24
--- OUTSIDE RECORDS SUMMARY | 2025-06-13 11:26 | XMS_ITS | Clinical Summary ---
Author Organization [facility] Care Team Providers Care Quarrying Manager Name Role Phone Unavailable Primary Care Provider Unavailabl e Social History Tobacco Use Types Packs/Day Years Used Date Smoking Tobacco: Never Assessed Comments Unknown Sex and Gender Information Value Date Recorded Sex Assigned at Not on file Legal Sex Female 8:40 AM HOME IMPROVEMENT ADVISOR Gender Identity Not on file Sexual Orientation Not on file Plan of Treatment Health Maintenance Due Date Last Done Comments Hepatitis C Virus (HCV) Screening 1983 TdaP Immunization 1983 Hepatitis B Immunization (1 of 3 - 19+ 3-dose series) 2002 Pap Smear 2004 Human Papillomavirus (HPV) Immunization (1 - 3-dose SCDM series) 2010 Cervical Cancer Screening (CCS) 2013 HPV/Cotest 2013 Influenza Immunization (#1) 2025 SARS-COV-2 Immunization ( season) 2025 Respiratory Syncytial Virus (RSV) Immunization (Adult) (1 - 1-dose 75+ series) 2058 Meningococcal Immunization (ACWY) Aged Out No longer eligible based on patient's age to complete this topic Pneumococcal Immunization Combined Aged Out No longer eligible based on patient's age to complete this topic Rotavirus Immunization Aged Out No lo nger eligible based on patient's age to complete this topic
--- OUTSIDE RECORDS SUMMARY | 2025-06-13 11:26 | XMS_ITS | Encounter Summary ---
Author Organization [facility] Address [address] [place] [address] Phone Care Team Providers Care Airport Sales Agent Name Role Phone Jesse Mantilla MD Primary Care Provider [phone] No, Physician Primary Care Provider [phone] Latia Isbell MD Primary Care Provider Encounter Details Date Type Department Care Team (Latest Contact Info) Description 05/03/2017 Orders Only [facility] CONVERSION Scanning, Provider Social History Tobacco Use Types Packs/Day Years Used Date Smoking Tobacco: Never Comments Unknown Sex and Gender Information Value Date Recorded Sex Assigned at Not on file 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 Gender Identity Female 04/30/2021 5:50 PM CDT Sexual Orientation Not on file documented as of this encounter Plan of Treatment Not on file documented as of this encounter Procedures Procedure Name Priority Date/Time Associated Diagnosis Comments OBSTETRIC/GYNECOLOGY ULTRASONOGRAPHY REPORT 05/03/2017 1:51 PM CDT documented in this encounter Results * OBSTETRIC/GYNECOLOGY ULTRASONOGRAPHY REPORT (05/03/2017 1:51 PM CDT) Anatomical Region Laterality Modality Ultrasound us Provider Scanning IMG OB US PROCEDURES Final Res ult documented in this encounter Visit Diagnoses Not on filedocumented in this encounter Care Teams Airport Sales Agent Relationship Specialty Start Date End Date Jesse Mantilla MD PCP - General 02/03/17 04/12/20 No, Physician PCP - General 04/13/20 03/04/24 Latia Isbell MD PCP - General Family Medicine 03/05/24 documented as of this encounter
--- OUTSIDE RECORDS SUMMARY | 2025-06-13 11:27 | XMS_ITS | Encounter Summary ---
Author Organization [facility] Address [address] [place] [address] Phone Care Team Providers Care Helicopter Repairer Name Role Phone Jesse Mantilla MD Primary Care Provider [phone] No, Physician Primary Care Provider Latia Isbell MD Primary Care Provider Encounter Details Date Type Department Care Team (Latest Contact Info) Description 07/24/2017 Orders Only [facility] CONVERSION Scanning, Provider Social History Tobacco Use Types Packs/Day Years Used Date Smoking Tobacco: Never Comments Unknown Sex and Gender Information Value Date Recorded Sex Assigned at Not on file 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 Gender Identity Female 04/30/2021 5:50 PM CDT Sexual Orientation Not on file documented as of this encounter Plan of Treatment Not on file documented as of this encounter Procedures Procedure Name Priority Date/Time Associated Diagnosis Comments OBSTETRIC/GYNECOLOGY ULTRASONOGRAPHY REPORT 07/24/2017 3:56 PM FISH RECEIVER documented in this encounter Results * OBSTETRIC/GYNECOLOGY ULTRASONOGRAPHY REPORT (07/24/2017 3:56 PM FISH RECEIVER) Anatomical Region Laterality Modality Ultrasound us Provider Scanning IMG OB US PROCEDURES Final Res ult documented in this encounter Visit Diagnoses Not on filedocumented in this encounter Care Teams Helicopter Repairer Relationship Specialty Start Date End Date Jesse Mantilla MD PCP - General 02/03/17 04/12/20 No, Physician PCP - General 04/13/20 03/04/24 Latia Isbell MD PCP - General Family Medicine 03/05/24 documented as of this encounter
== END 2025-06-13 11:24 | disposition home or self-care (01) ==
LOC: ANHFOHIMG 11:25
PROVIDERS: PCP Family Medicine Sports Medicine; Visit Provider Obstetrics & Gynecology
DX: Z12.31 Encounter for screening mammogram for malignant neoplasm of breast (principal)
CPT/HCPCS: 77063; 77067